=== PATIENT | male | born 1970 | race Caucasian/White ===

== ENCOUNTER 2024-03-15 18:51 | Emergency (ER) | payer OTHER ==
[~2024-03-15] VITALS: Ht 170.2 cm; Wt 66.0 kg
[2024-03-15 19:00] VITALS: O2SAT 99
[2024-03-15 20:21] LABS: CHLORIDE 104 mEq/L (98-107); SODIUM 137 mEq/L (136-145)
[2024-03-15 20:22] LABS: CALCIUM 9.8 mg/dL (8.7-10.4); CARBON DIOXIDE 26 mEq/L (21-32)
[2024-03-15 20:25] LABS: BASOPHILS % 0.4 % (0.0-2.0); EOSINOPHILS % 1.2 % (0.0-5.0); HEMATOCRIT. 43.4 % (42.0-52.0); HEMOGLOBIN. 15.3 g/dL (14.0-18.0); LYMPHOCYTES % 15.3 % (20.0-50.0); MEAN CORPUSCULAR HEMOGLOBIN 28.2 pg (28.0-32.0); MEAN CORPUSCULAR HGB CONC 35.2 g/dL (31.0-37.0); MEAN CORPUSCULAR VOLUME 80.1 fL (80.0-94.0); MEAN PLATELET VOLUME 7.7 fl (7.4-10.4); MONOCYTES % 8.7 % (2.0-8.0); NEUTROPHILS % 74.4 % (40.0-76.0); PLATELET 230 x1000/uL (130-400); RED BLOOD CELL COUNT 5.42 mill/uL (4.7-6.1); RED CELL DISTRIBUTION WIDTH 13.7 % (11.6-14.6); WHITE BLOOD COUNT 9.8 x1000/uL (4.5-11.0)
[2024-03-15 20:27] LABS: GLUCOSE 100 mg/dL (70-105); UREA NITROGEN BLOOD 16 mg/dL (9-23)
[2024-03-15 20:57] LABS: ALANINE AMINOTRANSFERASE 8 IU/L (10-49); ALBUMIN 4.8 g/dL (3.2-4.8); ASPARTATE AMINOTRANSFERASE 21 IU/L (<34); BILIRUBIN DIRECT 0.2 mg/dL (<=3.0)
[2024-03-15 20:58] LABS: PROTEIN TOTAL 8.1 g/dL (6.0-8.3)
[2024-03-15] MEDS ORDERED: DOXY100C5 MT (21:08)
[2024-03-15] MEDS ORDERED: TERB250T88 MT (21:08)
[2024-03-15 21:16] LABS: ERYTHROCYTE SEDIMENTATION RATE 6 mm/hr (0-20)
[2024-03-15 21:20] VITALS: BP 159/83; PULSE 74; RESP 16; TEMP 37.00296; O2SAT 99
== END 2024-03-15 21:20 | disposition home or self-care (01) ==
LOC: ER 18:51
DX: B35.3 Tinea pedis (principal); L03.115 Cellulitis of right lower limb
CPT/HCPCS: 36415; 73620; 80048; 80076; 85025; 85651; 99284